=== PATIENT | female | born 1975 | race Caucasian/White ===

== ENCOUNTER 2018-08-22 15:39 | Observation (INO) ==
[2018-08-22] MEDS ORDERED: ASPIRIN 81 MG TAB.CHEW PO ONE (16:05)
[2018-08-22] MEDS ORDERED: NITROGLYCERIN 0.4 MG/TAB BTL SL PRN ×2 (16:05→18:36)
--- NOTE | 2018-08-22 16:05 | ERNOTE ---
Chest Pain/Cardiac HPI Date of Service: 08/22/18 Chief Complaint: Chest Pain Time Seen by Provider: 08/22/18 15:55 Source: patient Exam Limitations: no limitations Immunizations: IMMUNIZATION HX Immunizations Up to Date Yes History of Influenza Vaccine Yes Hx Pneumococcal Vaccination No Allergies/Adverse Reactions: Allergies hydrocodone Adverse Reaction (Mild, Verified 08/22/18 18:47) Vomiting Home Medications: HOME MEDICATIONS Amlodipine Besylate 5 mg PO QAM 08/22/18 [Last Taken 08/22/18 06:00] Pain Score #1 Pain Score: 5 Narrative: The patient is a 43 year old female who presents for sternal chest pain which has been present for 2 days with worsening symptoms. There are associated symptoms of fatigue, exertional dyspnea and left arm aching. The patient reports sternal chest pain, 5/10. There are no alleviating factors. There are no aggravating factors. Previous treatments have included: none. The past medical history includes: HTN. The social history is negative. The patient has had no ill contacts. Review of Systems - Review of Systems Constitutional: Present: fatigue. Absent: fever EYE: Present: no symptoms reported ENT: Present: no symptoms reported. Absent: ear pain, nasal drainage, sore throat Respiratory: Present: shortness of breath. Absent: cough Cardiology: Present: chest pain, edema Gastrointestinal/Abdominal: Present: nausea. Absent: vomiting, diarrhea, abdominal pain Genitourinary: Present: no symptoms reported, decreased urinary output. Absent: dysuria Musculoskeletal: Present: joint pain - left arm Skin: Present: no symptoms reported Neurological: Present: no symptoms reported Endocrine: Present: no symptoms reported Hematologic/Lymphatic: Present: no symptoms reported Psych: Present: no symptoms reported All Other Systems: All systems neg except as marked Medical History (Last Reviewed 08/22/18 @ 16:04 by RAMIREZ Proctor) No pertinent past medical history Surgical History: Surgical History (Last Reviewed 08/22/18 @ 16:04 by RAMIREZ Proctor) History of hysterectomy Family History: Family History (Last Reviewed 08/22/18 @ 16:04 by RAMIREZ Proctor) Other No pertinent family history Social History: Preferred Language Palestinian Do you have any catholic or No cultural preference? Smoking Status Never smoker Have you smoked in the past 12 No months Do you dip or chew tobacco No Alcohol Use none Drug Use none No Social History Section defined Physical Exam - Physical Exam General Appearance: Present: wd/wn, alert, no apparent distress Head Exam: Present: normal inspection Eye Exam: Normal inspection: bilateral Ears, Nose, Throat: Present: normal ENT inspection, normal pharynx Neck: Present: normal inspection, nontender Respiratory: Present: no respiratory distress, normal breath sounds, no accessory muscle use, lungs clear, chest tenderness - sternal with palpation Cardiovascular/Chest: Present: regular rate, rhythm, no murmur Peripheral Pulses: N=norm/S=strong/W=weak/B=bound/A=absent: Radial (R): Normal Gastrointestinal/Abdominal: Present: normal bowel sounds, nontender, nondistended, soft, no organomegaly Back Exam: Present: no CVA tenderness Extremity Exam: Present: no edema Neurological Exam: Present: alert, oriented, normal mood/affect Skin Exam: Present: normal color, warm/dry Progress - Date and Time Seen: Date and Time: 08/22/18 19:12 Patient following administration of Nitro SL had vasovagal response with hypotension and near syncope. Patient placed into supine position and fluid bolus administered, patient improved. Patient remained on cardiac exercise physiologist during event. Repeat administration of Nitro held. Discussed case and findings with and will admit for observation chest pain and HTN. - Results and Orders Patient's Lab Results:: I have reviewed the patient's lab results. - Vital Signs Patient's Vital Signs:: I have reviewed the patient's vital signs. Vital Signs: Vital Signs 08/22/18 15:52 Temperature 36.7 C Pulse Rate 97 Respiratory Rate 15 Blood Pressure 167/110 H O2 Sat by Pulse Oximetry 97 - EKG EKG #1 EKG: NSR - possible old [place] EKG read: Reviewed by me - X-Ray X-Ray #1 X-Ray: chest Interpretation: Reviewed by me X-ray Comments: CXR PA/LAT: IMPRESSION: 1. Central bronchial wall prominence noted. Correlate clinically for acute or chronic bronchitis or reactive airways disease. 2. Mild cardiomegaly. Mildly increased vascular markings. Consider pulmonary venous congestion. 3. Calcified pulmonary nodule, and calcified right hilar lymph nodes likely from previous granulomatous disease. Electronically signed by Penny Ruiz M.D.. - Progress/Reassessment Chief Complaint: Chest Pain Departure Clinical Impression: Chest pain Qualifiers: Chest pain type: unspecified Qualified Code(s): R07.9 - Chest pain, unspecified Hypertension Qualifiers: Hypertension type: essential hypertension Qualified Code(s): I10 - Essential (primary) hypertension - Departure Disposition: Still a patient Condition: Good
[2018-08-22 16:22] LABS: Hematocrit 44.5 % (37.0-47.0); Hemoglobin 15.3 gm/dL (12.5-16.0); Mean Cell Volume 86.9 fl (78-100); Mean Corpuscular Hemoglobin 29.9 pg (27-31); Mean Corpuscular Hgb Conc 34.4 g/dl (32-36); Mean Platelet Volume 9.6 fl (8-12.5); Neutrophil # 6.5 K/mm3 (1.3-6.0); Neutrophil % 73.3 % (42-75.0); Platelet Count 248 K/mm3 (150-450); Red Blood Count 5.12 M/mm3 (4.2-5.4); Red Cell Distribution Width 13.2 % (11.5-14.0); White Blood Count 8.9 K/mm3 (4.0-10.5)
[2018-08-22 16:32] LABS: Prothrombin Time (Patient) 10.5 Seconds (9.1-10.7)
[2018-08-22 16:34] LABS: INR 1.06 INR (0.92-1.08); Partial Thrombolplastin Time 27.1 Seconds (24-32)
[2018-08-22 16:39] LABS: Blood Urea Nitrogen 13 mg/dL (3-23); Glucose * 90 mg/dL (70-110)
[2018-08-22 16:40] LABS: ALT 23 U/L (19-67); AST 18 U/L (0-48); Albumin * 3.8 gm/dl (3.4-5.0); Alkaline Phosphatase * 130 U/L (50-170); Anion Gap 12.2 mmol/L (6.8-13.8); BUN/Creatinine Ratio 16.9 (9.0-21.6); Bilirubin, Total 0.6 mg/dL (0.0-1.1); Ca. Corrected For Albumin 8.8 mg/dL (8.4-10.2); Carbon Dioxide 26.1 mmol/L (24-32.6); Chloride 103 mmol/L (97-106); Potassium 3.3 mmol/L (3.4-4.6); Sodium 138 mmol/L (132-142); Total Protein 7.8 gm/dL (6.2-8.2); Troponin I Less than 0.017 ng/mL (0.00-0.10)
[2018-08-22] MEDS ORDERED: ONDANSETRON HCL/PF 2 MG/ML VIAL ONE (16:40)
[2018-08-22] MEDS ORDERED: NORMAL SALINE 500 ML IV ONE (16:45)
[2018-08-22] MEDS ORDERED: ONDANSETRON HCL/PF 2 MG/ML VIAL IV ONE (16:48)
[2018-08-22] MEDS ORDERED: ROSUVASTATIN CALCIUM 20 MG TABLET PO STA (17:17)
[2018-08-22] MEDS ORDERED: ACETAMINOPHEN 500 MG TABLET PO ONE (17:20)
[2018-08-22] MEDS ORDERED: FUROSEMIDE 10 MG/ML VIAL IV ONE (18:23)
[2018-08-22] MEDS ORDERED: LISINOPRIL 10 MG TABLET PO SCH (18:30)
[2018-08-22] MEDS ORDERED: FUROSEMIDE 10 MG/ML VIAL ONE (20:12)
[2018-08-22] MEDS: amLODIPine BESYLATE 5 MG TABLET PO SCH (20:49)
[2018-08-22] MEDS: MORPHINE SULFATE 2 MG/ML DISP.SYRIN IV PRN (21:37)
[2018-08-22] MEDS: METOPROLOL SUCCINATE 50 MG TABLET.SA PO SCH (21:41)
[2018-08-23] MEDS: MORPHINE SULFATE 2 MG/ML DISP.SYRIN IV PRN (01:59)
[2018-08-23] MEDS ORDERED: ONDANSETRON HCL 8 MG TABLET PO PRN (04:31)
[2018-08-23] MEDS ORDERED: ACETAMINOPHEN 325 MG TABLET PO PRN ×2 (04:32→04:49)
[2018-08-23 06:04] LABS: Hematocrit 42.5 % (37.0-47.0); Hemoglobin 14.2 gm/dL (12.5-16.0); Mean Cell Volume 88.9 fl (78-100); Mean Corpuscular Hemoglobin 29.7 pg (27-31); Mean Corpuscular Hgb Conc 33.4 g/dl (32-36); Mean Platelet Volume 9.6 fl (8-12.5); Neutrophil # 4.9 K/mm3 (1.3-6.0); Neutrophil % 66.5 % (42-75.0); Platelet Count 222 K/mm3 (150-450); Red Blood Count 4.78 M/mm3 (4.2-5.4); Red Cell Distribution Width 13.2 % (11.5-14.0); White Blood Count 7.3 K/mm3 (4.0-10.5)
[2018-08-23 06:22] LABS: Urine Bilirubin Negative (NEGATIVE); Urine Blood Negative /ul (NEGATIVE); Urine Ketone Negative (NEGATIVE); Urine Nitrite Negative (NEGATIVE); Urine Protein Negative (NEGATIVE); Urine Specific Gravity 1.025 SP.GR. (1.005-1.010); Urine Urobilinogen Normal (NORMAL)
[2018-08-23 06:25] LABS: Anion Gap 9.6 mmol/L (6.8-13.8); BUN/Creatinine Ratio 20.7 (9.0-21.6); Blood Urea Nitrogen 17 mg/dL (3-23); Calcium * 8.4 mg/dL (7.9-10.9); Carbon Dioxide 29.6 mmol/L (24-32.6); Chloride 105 mmol/L (97-106); Estimated Creat Clear 95.7; Glucose * 88 mg/dL (70-110); Potassium 3.2 mmol/L (3.4-4.6); Sodium 141 mmol/L (132-142); Troponin I Less than 0.017 ng/mL (0.00-0.10)
[2018-08-23 06:36] LABS: Urine Appearance Clear (CLEAR); Urine Bacteria None Seen; Urine Color Yellow; Urine RBC None Seen /hpf (0-5); Urine WBC None Seen /hpf (0-5)
[2018-08-23] MEDS: METOPROLOL SUCCINATE 50 MG TABLET.SA PO SCH (08:12)
[2018-08-23] MEDS: amLODIPine BESYLATE 5 MG TABLET PO SCH (08:12)
[2018-08-23] MEDS ORDERED: ASPIRIN 81 MG TABLET.DR PO SCH (09:00)
--- NOTE | 2018-08-23 11:26 | HP ---
Chief Complaint - Chief Complaint Date of Service: 08/22/18 Time of Service: 18:10 Chief Complaint: chest pain, Hypertensive crisis, headhache, History of Present Illness: Rani Lovett is a 43-year-old female patient of Dr. Jose Angel Fung M.D. who presented to ER with chief complaint of chest pressure and heaviness and headache. Her blood pressure was high. She had been started on metoprolol twice a day but became somewhat lethargic with that and it was only brought her blood pressure down a little bit. She was then started on amlodipine 5 mg per day but then she developed the chest discomfort has presented to ER this evening. We will workup the emergency room his troponin is negative. EKG does not show any acute injury pattern but she has very poor R- wave progression throughout the and is highly suspicious for an age indeterminate anterior wall myocardial infarction. There isST elevation or depression and there is no downsloping of the ST segments so it is thought that this is not an acute event finding. She will be admitted for acute coronary syndrome to rule out NM and to get her blood pressure under better control. 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 Smoking Status Never smoker Have you smoked in the past 12 No months Do you dip or chew tobacco No Alcohol Use none Drug Use none No Social History Section defined Review Of Systems (GEN) - Review of Systems Generalized/Overall Review: Present: Fatigue EENTM: Present: No Symptoms Reported Respiratory: Present: No Symptoms Reported Cardiac: Present: Chest Pain, Other - Elevated blood pressure. Absent: Edema, Palpitations, Syncope Abdominal: Present: No Symptoms Reported Genitourinary: Present: No Symptoms Reported Musculoskeletal: Present: No Symptoms Reported Neurological: Present: No Symptoms Reported Skin: Present: No Symptoms Reported Endocrine: Present: No Symptoms Reported Misc: All systems neg except as marked Immunizations: IMMUNIZATION HX Immunizations Up to Date Yes History of Influenza Vaccine Yes Hx Pneumococcal Vaccination No Allergies/Adverse Reactions: Allergies Allergy/AdvReac Type Severity Reaction Status Date / Time lisinopril AdvReac Severe Other Verified 08/22/18 20:51 hydrocodone AdvReac Mild Vomiting Verified 08/22/18 18:47 Home Medications: HOME MEDICATIONS Amlodipine Besylate 5 mg PO QAM 08/22/18 [Last Taken 08/22/18 06:00] Exam - Exam Vital Signs: Vital Signs - Last Taken Temp 36.6 C 08/23/18 10:29 Pulse 64 08/23/18 10:29 Resp 18 08/23/18 10:29 BP 150/89 H 08/23/18 10:29 Pulse Ox 96 08/23/18 10:29 Constitutional: Present: Alert, Oriented x3, Cooperative, Well developed, Well nourished, Obese ENT Exam: Present: normal ENT inspection, hearing grossly normal, pharynx normal, TMs normal Eye Exam: bilateral eye: normal inspection, PERRL, EOMI Neck: Present: non-tender, full range of motion, supple, normal inspection, trachea midline Back Exam: Present: normal inspection, no CVA tenderness, no vertebral tenderness Breasts: Present: Exam deferred Respiratory: Present: chest non-tender, lungs clear, normal breath sounds, no respiratory distress, no accessory muscle use Cardiovascular/Chest: Present: normal peripheral pulses, no gallop, no JVD, no murmur, no rub Peripheral Pulses: carotid (R): 2+, carotid (L): 2+, radial (R): 2+, radial (L): 2+ Abdomen: Present: Normal bowel sounds, soft, nontender, nondistended, no rebound tenderness, no hepatospenomegaly, no masses /Rectal: Present: Exam deferred Extremity: Present: normal range of motion, non-tender, normal inspection, no pedal edema, no calf tenderness, normal capillary refill Skin Exam: Present: normal color, warm/dry, no cyanosis Neurologic: Present: dining room host/hostess II-XII nml as tested, normal cerebellar test, no motor/sensory deficits Appearance: Present: appropriate appearance, appropriate insight, neat, no memory impairment Eye contact: Present: cooperative, good eye contact, normal speech Thoughts: Present: normal thought pattern, no apparent hallucination Diagnostic Studies: Abnormal Lab Results 08/22/18 08/22/18 08/23/18 Range/Units 16:15 16:15 05:50 Neutrophils # 6.5 H (1.3-6.0) K/mm3 Potassium 3.3 L 3.2 L (3.4-4.6) mmol/L Laboratory Results WBC 7.3 K/mm3 (4.0-10.5) 08/23/18 05:50 RBC 4.78 M/mm3 (4.2-5.4) 08/23/18 05:50 Hgb 14.2 gm/dL (12.5-16.0) 08/23/18 05:50 Hct 42.5 % (37.0-47.0) 08/23/18 05:50 MCV 88.9 fl (78-100) 08/23/18 05:50 MCH 29.7 pg (27-31) 08/23/18 05:50 MCHC 33.4 g/dl (32-36) 08/23/18 05:50 RDW 13.2 % (11.5-14.0) 08/23/18 05:50 Plt Count 222 K/mm3 (150-450) 08/23/18 05:50 MPV 9.6 fl (8-12.5) 08/23/18 05:50 Immature Gran % (Auto) 0.10 % (0.001-0.429) 08/23/18 05:50 Immature Gran # (Auto) 0.01 K/mm3 (0.000-0.0310) 08/23/18 05:50 Neutrophils % 66.5 % (42-75.0) 08/23/18 05:50 Lymphocytes % 24.5 % (20-51) 08/23/18 05:50 Monocytes % 6.9 % (0.0-9) 08/23/18 05:50 Eosinophils % 1.5 % (0.0-3.0) 08/23/18 05:50 Basophils % 0.5 % (0.0-1.0) 08/23/18 05:50 Nucleated RBC % 0.0 k/mm3 (0-1) 08/23/18 05:50 Neutrophils # 4.9 K/mm3 (1.3-6.0) 08/23/18 05:50 Lymphocytes # 1.80 k/mm3 (1.5-3.5) 08/23/18 05:50 Monocytes # 0.5 k/mm3 (0.0-1.0) 08/23/18 05:50 Eosinophils # 0.1 k/mm3 (0.0-0.7) 08/23/18 05:50 Absolute Basophils 0.0 k/mm3 (0.0-0.1) 08/23/18 05:50 PT 10.5 Seconds (9.1-10.7) 08/22/18 16:15 INR (Anticoag Therapy) 1.06 INR (0.92-1.08) 08/22/18 16:15 PTT ([place]) 27.1 Seconds (24-32) 08/22/18 16:15 D-Dimer 0.49 ug/mL (0.19-0.49) 08/22/18 16:15 Sodium 141 mmol/L (132-142) 08/23/18 05:50 Plasma Sodium 141 mmol/L (130-142) 08/23/18 05:50 Potassium 3.2 mmol/L (3.4-4.6) L 08/23/18 05:50 Chloride 105 mmol/L (97-106) 08/23/18 05:50 Carbon Dioxide 29.6 mmol/L (24-32.6) 08/23/18 05:50 Anion Gap 9.6 mmol/L (6.8-13.8) 08/23/18 05:50 BUN 17 mg/dL (3-23) 08/23/18 05:50 Creatinine 0.82 mg/dL (0.4-1.4) 08/23/18 05:50 Est GFR (Non-Af Amer) 81 mL/min (60-130) 08/23/18 05:50 BUN/Creatinine Ratio 20.7 (9.0-21.6) 08/23/18 05:50 Random Glucose 88 mg/dL (70-110) 08/23/18 05:50 Calcium 8.4 mg/dL (7.9-10.9) 08/23/18 05:50 Calcium Adj for Albumin 8.8 mg/dL (8.4-10.2) 08/22/18 16:15 Total Bilirubin 0.6 mg/dL (0.0-1.1) 08/22/18 16:15 AST 18 U/L (0-48) 08/22/18 16:15 ALT 23 U/L (19-67) 08/22/18 16:15 Alkaline Phosphatase 130 U/L (50-170) 08/22/18 16:15 Troponin I Less than 0.017 ng/mL (0.00-0.10) 08/23/18 05:50 B-Natriuretic Peptide 44 pg/mL (5-150) 08/22/18 16:15 Total Protein 7.8 gm/dL (6.2-8.2) 08/22/18 16:15 Albumin 3.8 gm/dl (3.4-5.0) 08/22/18 16:15 Urine Color Yellow 08/23/18 05:50 Urine Appearance Clear (CLEAR) 08/23/18 05:50 Urine pH 6.0 pH (5.0-7.0) 08/23/18 05:50 Ur Specific [place] 1.025 SP.GR. (1.005-1.010) 08/23/18 05:50 Urine Protein Negative mg/dL (NEGATIVE) 08/23/18 05:50 Urine Glucose (UA) Negative mg/dL (NEGATIVE) 08/23/18 05:50 Urine Ketones Negative mg/dL (NEGATIVE) 08/23/18 05:50 Urine Blood Negative /ul (NEGATIVE) 08/23/18 05:50 Urine Nitrate Negative (NEGATIVE) 08/23/18 05:50 Urine Bilirubin Negative mg/dl (NEGATIVE) 08/23/18 05:50 Urine Urobilinogen Normal EU/dl (NORMAL) 08/23/18 05:50 Ur Leukocyte Esterase Negative /ul (NEGATIVE) 08/23/18 05:50 Urine RBC None seen /hpf (0-5) 08/23/18 05:50 Urine WBC None seen /hpf (0-5) 08/23/18 05:50 Ur Epithelial Cells Trace /hpf (0-5) 08/23/18 05:50 Urine Bacteria None seen (NONE) 08/23/18 05:50 Assessment/Plan - Narrative Narrative: She'll be admitted for serial troponins, EKGs, and continuous cardiac monitoring. I will start her on amlodipine in conjunction with metoprolol and adjust her dose as needed for discharge. She has never had a cardiovascular evaluation but that will be set up as an outpatient process. - Assessment/Plan (1) Chest pain Problem: Acute Qualifiers: Chest pain type: unspecified Qualified Code(s): R07.9 - Chest pain, unspecified (2) Hypertension Problem: Acute Qualifiers: Hypertension type: essential hypertension Qualified Code(s): I10 - Essential (primary) hypertension (3) Headache Problem: Acute Qualifiers: Headache type: unspecified Headache chronicity pattern: acute headache Intractability: not intractable Qualified Code(s): R51 - Headache (4) Obesity (BMI 35.0-39.9 without comorbidity) Problem: Acute
--- NOTE | 2018-08-23 11:54 | DS ---
(1) Chest pain Problem: Acute Qualifiers: Chest pain type: unspecified Qualified Code(s): R07.9 - Chest pain, unspecified (2) Hypertension Problem: Acute Qualifiers: Hypertension type: essential hypertension Qualified Code(s): I10 - Essential (primary) hypertension (3) Headache Problem: Acute Qualifiers: Headache type: unspecified Headache chronicity pattern: acute headache Intractability: not intractable Qualified Code(s): R51 - Headache (4) Obesity (BMI 35.0-39.9 without comorbidity) Problem: Acute Description of Stay: Rani Lovett is a 43-year-old female who was admitted last evening with chest pain to rule out CT. She also had significant hypertension which has improved some this morning down to 152/92. She is sleepy and lethargic this mo rning. She was awake most of the night however. The repeat troponin is normal and repeat EKG is unchanged from admission. She has been taking amlodipine and metoprolol in combination and has tolerated it well. She'll be discharged to home. A nuclear stress test will be set up. Also an echocardiogram will be ordered. Procedures Performed: none Results and Findings: Lab Pending Results 08/22/18 16:15: WBC 8.9, RBC 5.12, Hgb 15.3, Hct 44.5, MCV 86.9, MCH 29.9, MCHC 34.4, RDW 13.2, Plt Count 248, MPV 9.6, Immature Gran % (Auto) 0.10, Immature Gran # (Auto) 0.01, Neutrophils % 73.3, Lymphocytes % 20.5, Monocytes % 4.6, Eosinophils % 0.9, Basophils % 0.6, Nucleated RBC % 0.0, Neutrophils # 6.5 H, Lymphocytes # 1.82, Monocytes # 0.4, Eosinophils # 0.1, Absolute Basophils 0.1 08/22/18 16:15: PT 10.5, INR (Anticoag Therapy) 1.06, PTT ([place]) 27.1 08/22/18 16:15: Sodium 138, Plasma Sodium 138, Potassium 3.3 L, Chloride 103, Carbon Dioxide 26.1, Anion Gap 12.2, BUN 13, Creatinine 0.77, Est GFR (Non-Af Amer) 87, BUN/Creatinine Ratio 16.9, Random Glucose 90, Calcium 9.0, Calcium Adj for Albumin 8.8, Total Bilirubin 0.6, AST 18, ALT 23, Alkaline Phosphatase 130, Troponin I Less than 0.017, Total Protein 7.8, Albumin 3.8 08/22/18 16:15: D-Dimer 0.49 08/22/18 16:15: B-Natriuretic Peptide 44 08/22/18 22:55: Troponin I Less than 0.017 08/23/18 05:50: WBC 7.3, RBC 4.78, Hgb 14.2, Hct 42.5, MCV 88.9, MCH 29.7, MCHC 33.4, RDW 13.2, Plt Count 222, MPV 9.6, Immature Gran % (Auto) 0.10, Immature Gran # (Auto) 0.01, Neutrophils % 66.5, Lymphocytes % 24.5, Monocytes % 6.9, Eosinophils % 1.5, Basophils % 0.5, Nucleated RBC % 0.0, Neutrophils # 4.9, Lymphocytes # 1.80, Monocytes # 0.5, Eosinophils # 0.1, Absolute Basophils 0.0 08/23/18 05:50: Sodium 141, Plasma Sodium 141, Potassium 3.2 L, Chloride 105, Carbon Dioxide 29.6, Anion Gap 9.6, BUN 17, Creatinine 0.82, Est GFR (Non-Af Amer) 81, BUN/Creatinine Ratio 20.7, Random Glucose 88, Calcium 8.4, Troponin I Less than 0.017 08/23/18 05:50: Urine Color Yellow, Urine Appearance Clear, Urine pH 6.0, Ur Specific [place] 1.025, Urine Protein Negative, Urine Glucose (UA) Negative, Urine Ketones Negative, Urine Blood Negative, Urine Nitrate Negative, Urine Bilirubin Negative, Urine Urobilinogen Normal, Ur Leukocyte Esterase Negative, Urine RBC None seen, Urine WBC None seen, Ur Epithelial Cells Trace, Urine Bacteria None seen Discharge Location: Home Disposition: Home self-care Condition: Good Discharge Activity: Activity as tolerated Discharge Diet: Consistent carbs Referrals: Jose Angel Maria MD [Primary Care Provider] - Prescriptions (Any new or edited meds): Metoprolol Tartrate 50 mg PO BID #60 tablet Complete Home Medications List: Complete Home Medication List: Amlodipine Besylate 5 mg PO QAM 08/22/18 Aspirin [Aspirin Enteric Coated] 81 mg PO DAILY #100 tablet. 08/23/18 Metoprolol Tartrate 50 mg PO BID #60 tab 08/23/18 Ondansetron HCl [Zofran] 8 mg PO Q6H PRN #14 tab 08/23/18
[2018-08-23 12:39] VITALS: BP 143/95
== END 2018-08-23 13:01 | disposition home or self-care (01) ==
LOC: ER 15:39 → MS 15:39
PROVIDERS: ADMIT Family Medicine; ATTEND Allergy & Immunology
CPT/HCPCS: 36415; 71020; 71046; 80048; 80053; 81001; 83519; 83880; 84484; 85025; 85379; 85610; 85730; 93005; 96374; 96375; 99285; G0378; J2405